=== PATIENT | male | born 1965 | race Caucasian/White ===

== ENCOUNTER → 2016-03-31 | Outpatient (CLI) | payer BC ==
[~2016-03-31] MED LIST: DOCU100C PO; HYDR-4079 PO; POLY335019 PO
[2016-03-31 20:12] LABS: BLOOD UREA NITROGEN 15 mg/dl (7-18); CREATININE 0.91 mg/dl (0.60-1.40)
== END | disposition home or self-care (01) ==
LOC: C.LABSPEC 19:04
PROVIDERS: ATTEND Family Medicine
DX: M54.16 Radiculopathy, lumbar region (principal)

== ENCOUNTER → 2016-05-02 | Day surgery (SDC) | payer BC ==
--- NOTE | 2016-04-26 15:10 | DIAGNOSTIC IMAGING REPORT ---
CHEST 2 VIEWS ROUTINE HISTORY: Pre-op. LUMBAR DISC HERNIATION W/RADICULOPATHY COMPARISON: None. FINDINGS: The lungs are clear. Cardiac silhouette is normal in size. No pleural effusions. No pneumothorax. IMPRESSION: No acute process. Electronically signed by: Emiliano Ford M.D. 04/26/2016 3:09 PM Dictated Date/Time: 04/26/2016 3:07 PM
[2016-04-26 15:33] LABS: BASO % 0.3 %; BASO ABS # 0.02 K/uL (0-0.2); COMPLETE YES; HEMATOCRIT 50.7 % (42-52); IG% 0.4 %; LYMPH ABS # 1.59 K/uL (1.2-3.4); MEAN CELL VOLUME 89.6 fL (80-100); MEAN CORPUSCULAR HEMOGLOBIN 30.7 pg (25-34); MEAN CORPUSCULAR HGB CONC 34.3 g/dl (32-36); MEAN PLATELET VOLUME 9.3 fL (7.4-10.4); MONO % 8.7 %; NEUT % 69.6 %; PLATELET COUNT 259 K/uL (130-400); RED BLOOD COUNT 5.66 M/uL (4.7-6.1); WHITE BLOOD COUNT 7.94 K/uL (4.8-10.8)
[2016-04-26 15:37] LABS: URINE APPEARANCE CLEAR (CLEAR); URINE BILIRUBIN NEG (NEG); URINE COLOR YELLOW; URINE NITRITE NEG (NEG); URINE PH 5.5 (4.5-7.5); URINE SPECIFIC GRAVITY 1.003 (1.000-1.030); UROBILINOGEN NEG (NEG)
[2016-04-26 15:43] LABS: MANUAL MICROSCOPIC REQUIRED? NO; REVIEW REQ? NO
[2016-04-26 15:50] LABS: BLOOD UREA NITROGEN 19 mg/dl (7-18); BUN/CREATININE RATIO 19.8 (10-20); CALCIUM 8.8 mg/dl (8.5-10.1); CARBON DIOXIDE 30 mmol/L (21-32); CHLORIDE 102 mmol/L (98-107); CREATININE 0.94 mg/dl (0.60-1.40); GLUCOSE 95 mg/dl (70-99); POTASSIUM 4.3 mmol/L (3.5-5.1); SODIUM 139 mmol/L (136-145)
[2016-04-26 16:08] VITALS: BMI 27.0
--- NOTE | 2016-04-28 14:38 | HISTORY & PHYSICAL EXAMINATION ---
DATE OF ADMISSION: 05/02/2016 HISTORY OF PRESENT ILLNESS: Mr. Francis presents to our office with a complaint of back and right leg pain. This has been ongoing for about 6 weeks. That has worsened over the past 4 weeks. No specific injury. He feels his right leg is very weak. He feels he is unable to do any type of activity. Walking seems to be better than sitting. His family physician placed him on oral steroids as well as gave him pain medications. He has had a prior L4-5 disc herniation treated in the year 1999 in the form of a partial discectomy. PAST MEDICAL HISTORY: The patient's medical history is significant for none. PAST SURGICAL HISTORY: Prior back surgery in year 1999. MEDICATIONS: Include hydrocodone 10/325 as needed for pain control. ALLERGIES: None listed. 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 He smokes a pack a day of cigarettes. He is . Denies alcohol. FAMILY HISTORY: Significant for diabetes and stroke. REVIEW OF SYSTEMS: Significant for constipation, difficulty walking, weakness, back and leg pain. PHYSICAL EXAMINATION: VITAL SIGNS: 6 feet tall, 200 pounds. HEENT: Speech appropriate. CARDIOPULMONARY: No gross abnormalities. ABDOMEN: Soft, nontender. GENITOURINARY: Deferred. NEUROLOGIC: Cranial nerves II-XII grossly intact. MUSCULOSKELETAL: He is unable to sit for any period of time. He has positive straight leg raise on the right. He also has a contralateral straight leg raise. He has some weakness along his EHL on the right. Gait is stable. ASSESSMENT: L5-S1 on the right disc herniation. PLAN: At this point in time, we have reviewed options. We have discussed surgical intervention. Surgery would require lumbar laminectomy L5-S1 on the right. Risks, benefits, pros, cons, and alternatives were outlined in detail. The patient would like to proceed with the above-mentioned surgical planning.
[~2016-05-02] VITALS: Ht 182.9 cm; Wt 90.9 kg
[~2016-05-02] MED LIST changes: +ACETAMINOPHEN 325 MG TAB PO PRN; +ATROPINE SULFATE 0.1 MG/ML 5ML SYR IV PRN; +BACITRACIN 50000 UNIT VIAL ONE; +BUPIVACAINE/EPINEPHRINE 0.5% MPF 1:200,000 30 ML VIAL ONE; +CEFAZOLIN 2000 MG/60 ML D5W 60 ML IV SCH; +DEXAMETHASONE SOD INJ 4 MG/ML VIAL ONE; +EpHEDrine SULFATE INJ 50 MG/ML AMP IV PRN; +FENTANYL CITRATE INJ 50 MCG/1 ML 2 ML VIAL ONE; +GLYCOPYRROLATE INJ 0.2 MG/ML VIAL ONE; +HYDROmorphone INJ 1 MG/ML SYR IV PRN; +HYDROmorphone INJ 2 MG/ML SYR/VIAL IV PRN; +LACTATED RINGER'S 1000ML 1,000 ML IV SCH; +LIDOCAINE HCL 2% 2 ML VIAL (20MG/ML) ONE; +MIDAZOLAM HCL 1 MG/ML 2ML VIAL ONE; +NEOSTIGMINE METHYLSULFATE 1 MG/ML 10ML VIAL ONE; +ONDANSETRON INJ 2 MG/ML 2 ML VIAL IV PRN; +ONDANSETRON INJ 2 MG/ML 2 ML VIAL ONE; +OXYCODONE HCL IR 5 MG TAB (IMMEDIATE RELEASE) PO PRN; +PHENYLEPHRINE 100MCG/ML 5ML SYR IV PRN; +PROPOFOL IV EMULSION 10 MG/ML 20 ML VIAL IV ONE; +ROCURONIUM BROMIDE 10 MG/ML 5 ML VIAL ONE; +SODIUM CHLORIDE 0.9% PF 50 ML VIAL ONE
--- NOTE | 2016-05-02 07:27 | History & Physical Bridge Note ---
H&P Re-Evaluation Bridge Note: I have examined the patient, reviewed the History & Physical and in the interval since the performance of the History & Physical I have noted the following changes of clinical significance: No changes noted
[2016-05-02 12:39] VITALS: BP 116/88; PULSE 92; TEMP 36.7; O2SAT 95; Ht 182.9 cm; Wt 90.9 kg
--- NOTE | 2016-05-02 16:16 | Discharge Instructions ---
Discharge Instructions Date of Service May 02, 2016. Admission Reason for Admission: Lumbar Disc Herniation W/Radiculopathy Discharge Discharge Diagnosis / Problem: hnp Discharge Goals Goal(s): Improve function Activity Recommendations Activity Limitations: per Instructions/Follow-up section . Current Hospital Diet Patient's current hospital diet: Discharge Diet Recommended Diet: Regular Diet Procedures Procedures Performed: L5-S1 Microdiscectomy - Posterior Incision, Removal of Herniated Disc Pending Studies Studies pending at discharge: no Medical Emergencies . Who to Call and When: Medical Emergencies: If at any time you feel your situation is an emergency, please call 911 immediately. . Non-Emergent Contact Non-Emergency issues call your: Primary Care Provider . "Provider Documentation" section prepared by Oscar Vanegas. VTE Core Measure Inpt VTE Proph given/why not?: Tres Lindsay, SCD's
--- NOTE | 2016-05-02 16:37 | DIAGNOSTIC IMAGING REPORT ---
INTRAOPERATIVE FLUOROSCOPIC IMAGE OF THE SPINE CLINICAL HISTORY: L5-S1 MICRODISCECTOMY COMPARISON STUDY: No previous studies for comparison. Fluoroscopy time: 5.9 seconds. FINDINGS: A single lateral fluoroscopic image of the lumbar spine demonstrates surgical retractors and surgical instrument directed toward the superior endplate of S1. IMPRESSION: Intraoperative localization with surgical instrument directed toward the superior endplate of S1. Electronically signed by: Kayden Villasenor M.D. 05/02/2016 4:35 PM Dictated Date/Time: 05/02/2016 4:34 PM
--- NOTE | 2016-05-02 16:59 | Anesthesiology Progress Note ---
Anesthesia Post Op Note Date & Time May 02, 2016 at 16:59 Vital Signs Pain Intensity: 0 Vital Signs Past 12 Hours Date Time Temp Pulse Resp B/P Pulse Ox O2 Delivery O2 Flow Rate FiO2 05/02/16 16:50 59 16 130/77 97 Nasal Cannula 3 05/02/16 16:40 59 18 128/77 100 Mask 10 05/02/16 16:30 36.1 60 16 126/82 99 Mask 10 05/02/16 12:39 36.7 92 20 116/88 95 Room Air Notes Mental Status: alert / awake / arousable, participated in evaluation Pt Amnestic to Procedure: Yes Nausea / Vomiting: adequately controlled Pain: adequately controlled Airway Patency, RR, SpO2: stable & adequate BP & HR: stable & adequate Hydration State: stable & adequate Anesthetic Complications: no major complications apparent
--- NOTE | 2016-05-02 17:10 | OPERATIVE REPORT ---
DATE OF OPERATION: 05/02/2016 PREOPERATIVE DIAGNOSIS: Herniated nucleus pulposus L5-S1 on the right. POSTOPERATIVE DIAGNOSIS: Same. PROCEDURE PERFORMED: Lumbar laminotomy L5-S1 on the right with excision of herniated free fragment. SURGEON: Oscar Vanegas DO PST SUPERVISOR: Carolin Ledezma PA-C. Due to the complex nature of the procedure, the entire surgery was performed with the account management assistant of JENNIFER Ferreira. The assistant tennis coach, under direct supervision, was involved in the actual performance of all aspects of the surgical procedure including hemostasis, tissue retraction and incision, instrument management, patient positioning, and wound closure. ANESTHESIA: General. DISPOSITION: The patient awakened and taken to PACU in stable condition. HISTORY OF PATIENT'S PROBLEMS: This is a 51-year-old male who presents with above-mentioned diagnosis. After failing an extensive course of nonoperative care, elected to undergo the above-mentioned procedure. Risks, benefits, pros, cons, and alternatives were outlined in detail preoperatively. DESCRIPTION OF PROCEDURE: The patient was met with preoperatively, the case discussed and all questions were addressed. At that point, the patient was taken back to operative suite and after undergoing successful general intubation by the department of anesthesia, was placed in prone position on Primo table atop Tino frame. All bony prominences were well padded and the eyes were inspected to ensure there was no external pressure placed up them. At this point, lumbar spine was prepped and draped in normal sterile fashion. With the assistance of fluoroscopy, we identified the 5-1 disc space and midline incision was created overlying this region. Sharp dissection with the assistance of Bovie cautery performed down to and exposing the interlaminar space at L5-S1 on the right. A self-retaining retractor was placed. I then performed a small laminotomy excising the lateral portion of ligament flavum on the right. We exposed the mass and we significantly compressed traversing S1 nerve root and massive disc herniation in the axillary region. This was removed in its entirety creating significant decompression of the root. The area was explored several times to ensure all loose fragments were addressed and then copiously irrigated and closed with #1 Vicryl in the fascia, 2-0 Vicryl subcutaneously, 4-0 Monocryl for final skin closure. Steri-Strips and sterile dressing placed. The patient was awakened and taken to PACU in stable condition. I attest to the content of the Intraoperative Record and any orders documented therein. Any exceptio ns are noted below.
[2016-05-02 18:00] VITALS: BP 118/74; PULSE 79; TEMP 36.4; O2SAT 93
== END | disposition home or self-care (01) ==
LOC: C.ACU 12:14
PROVIDERS: ATTEND Orthopaedic Surgery Orthopaedic Surgery of the Spine
DX: M51.27 Other intervertebral disc displacement, lumbosacral region (principal)